=== PATIENT | female | born 1945 | race Caucasian/White ===

== ENCOUNTER 2020-10-06 19:33 | Emergency (ER) | payer MEDICARE, OTHER ==
--- NOTE | 2020-10-06 20:32 | EDM.PDOC ---
ED HPI GENERAL MEDICAL PROBLEM - General Chief Complaint: Neurological Problem Stated Complaint: DIZZY Time Seen by Provider: 10/06/20 20:09 Source of Information: Reports: Patient, Family History Limitations: Reports: No Limitations - History of Present Illness INITIAL COMMENTS - FREE TEXT/NARRATIVE: The patient presents with dizziness. This started a few weeks ago. She saw Dr Schaeffer a few days ago for it. He did labs and they all looked good. He also referred her to an entry level mechanical engineer. Today at 5pm it got much worse. She says when she lays down or looks to the side the dizziness is much worse. She has a slight headache. She also has some crackling in her ears when she opens and closes her mouth. She also has some sharp pain in the left ear at times. She also has dry mouth. She has no nausea or vomiting. She has no fever, chills, cough, chest pain, shortness of breath, abdominal pain, nausea or vomiting. She has no numbness or weakness. She said one time she felt like this her potassium was low but labs from a day ago shows her potassium was 3.9. Onset: Gradual Duration: Week(s): Location: Reports: Head Quality: Reports: Ache Severity: Mild Improves with: Reports: None Worsens with: Reports: None Associated Symptoms: Reports: Headaches. Denies: Chest Pain, Cough, Fever/Chills, Nausea/Vomiting, Shortness of Breath Left Ear Pain Score (Numeric/FACES): 4 - Related Data Allergies Allergy/AdvReac Type Severity Reaction Status Date / Time Penicillins Allergy Difficulty Verified 01/22/20 15:52 Breathing Past Medical History - Infectious Disease History Infectious Disease History: Reports: Measles Social & Family History - Tobacco Use Tobacco Use Status *Q: Never Tobacco User - Caffeine Use Caffeine Use: Reports: Coffee - Recreational Drug Use Recreational Drug Use: No ED ROS GENERAL - Review of Systems Review Of Systems: See Below Constitutional: Reports: No Symptoms HEENT: Reports: Ear Pain (left) Respiratory: Reports: No Symptoms Cardiovascular: Reports: No Symptoms Endocrine: Reports: No Symptoms GI/Abdominal: Reports: No Symptoms : Reports: No Symptoms Musculoskeletal: Reports: No Symptoms Neurological: Reports: Dizziness, Headache. Denies: Numbness, Weakness ED EXAM, NEURO - Physical Exam Exam: See Below Exam Limited By: No Limitations General Appearance: Alert, No Apparent Distress Eye Exam: Left Eye: Nystagmus, Bilateral Eye: EOMI Ears: Normal External Exam, Normal Canal, Normal TMs Nose: Normal Inspection Head Exam: Atraumatic, Normocephalic Neck: Normal Inspection Respiratory/Chest: No Respiratory Distress, Lungs Clear, Normal Breath Sounds Cardiovascular: Regular Rate, Rhythm, No Edema, No Murmur GI/Abdominal: Soft, Non-Tender, No Organomegaly, No Mass Neurological: Alert, No Motor/Sensory Deficits, Oriented x 3 Course - Vital Signs Last Recorded V/S: Last Vital Signs Temp 98.8 F 10/06/20 20:20 Pulse 87 10/06/20 20:20 Resp 20 10/06/20 20:20 BP 154/87 H 10/06/20 20:20 Pulse Ox 99 10/06/20 20:20 - Orders/Labs/Meds Orders: Active Orders 24 hr Category Date Time Status Cardiac Monitoring [RC] . DIRECTED Care 10/06/20 20:25 Active EKG Documentation Completion [RC] STAT Care 10/06/20 20:25 Active Peripheral IV Care [RC] . DIRECTED Care 10/06/20 21:46 Active Head wo Cont [CT] Stat Exams 10/06/20 20:26 Taken Sodium Chloride 0.9% [Normal Saline] 1,000 ml Med 10/06/20 22:15 Active IV ASDIRECTED Sodium Chloride 0.9% [Saline Flush] Med 10/06/20 21:46 Active 10 ml FLUSH ASDIRECTED PRN Peripheral IV Insertion Adult [OM.PC] Routine Oth 10/06/20 21:46 Ordered Medication Orders Sodium Chloride (Normal Saline) 1,000 mls @ 150 mls/hr IV ASDIRECTED MONICA Last Admin: 10/06/20 22:12 Dose: 150 mls/hr Documented by: EL Sodium Chloride (Sodium Chloride 0.9% 10 Ml Syringe) 10 ml FLUSH ASDIRECTED PRN PRN Reason: Keep Vein Open Last Admin: 10/06/20 22:04 Dose: 10 ml Documented by: EL Labs: Laboratory Tests 10/06/20 10/06/20 Range/Units 20:39 20:39 WBC 11.18 H (3.98-10.04) K/mm3 RBC 5.18 (3.98-5.22) M/mm3 Hgb 14.3 (11.2-15.7) gm/dl Hct 43.6 (34.1-44.9) % MCV 84.2 (79.4-94.8) fl MCH 27.6 (25.6-32.2) pg MCHC 32.8 (32.2-35.5) g/dl RDW Std Deviation 47.0 H (36.4-46.3) fL Plt Count 265 (182-369) K/mm3 MPV 8.7 L (9.4-12.3) fl Neut % (Auto) 71.6 H (34.0-71.1) % Lymph % (Auto) 19.1 L (19.3-51.7) % [place] % (Auto) 8.0 (4.7-12.5) % Eos % (Auto) 0.9 (0.7-5.8) Baso % (Auto) 0.2 (0.1-1.2) % Neut # (Auto) 8.02 H (1.56-6.13) K/mm3 Lymph # (Auto) 2.13 (1.18-3.74) K/mm3 [place] # (Auto) 0.89 H (0.24-0.36) K/mm3 Eos # (Auto) 0.10 (0.04-0.36) K/mm3 Baso # (Auto) 0.02 (0.01-0.08) K/mm3 Manual Slide Review Normal smear Sodium 142 (136-145) mEq/L Potassium 3.3 L (3.5-5.1) mEq/L Chloride 104 (98-107) mEq/L Carbon Dioxide 22 (21-32) mEq/L Anion Gap 19.3 H (5-15) BUN 13 (7-18) mg/dL Creatinine 0.7 (0.55-1.02) mg/dL Est Cr Clr Drug Dosing 66.49 mL/min Estimated GFR (MDRD) > 60 (>60) mL/min BUN/Creatinine Ratio 18.6 H (14-18) Glucose 117 H (83-115) mg/dL Calcium 8.8 (8.5-10.1) mg/dL Magnesium 2.3 (1.8-2.4) mg/dl Total Bilirubin 0.4 (0.2-1.0) mg/dL AST 14 L (15-37) U/L ALT 28 (14-59) U/L Alkaline Phosphatase 85 (46-116) U/L Troponin I < 0.017 (0.00-0.056) ng/mL Total Protein 7.3 (6.4-8.2) g/dl Albumin 3.9 (3.4-5.0) g/dl Globulin 3.4 gm/dL Albumin/Globulin Ratio 1.2 (1-2) Meds: Medications Generic Name Dose Route Start Last Admin Trade Name Freq PRN Reason Stop Dose Admin Sodium Chloride 1,000 mls @ 150 mls/hr 10/06/20 22:15 10/06/20 22:12 Normal Saline IV 150 mls/hr ASDIRECTED MONICA Administration Sodium Chloride 10 ml 10/06/20 21:46 10/06/20 22:04 Sodium Chloride 0.9% 10 Ml Syringe FLUSH 10 ml ASDIRECTED PRN Administration Keep Vein Open Discontinued Medications Generic Name Dose Route Start Last Admin Trade Name Freq PRN Reason Stop Dose Admin Potassium Chloride 10 meq/ 100 mls @ 100 mls/hr 10/06/20 21:46 10/06/20 22:02 Premix IV 10/06/20 22:45 100 mls/hr ONETIME ONE Administration Meclizine HCl 25 mg 10/06/20 20:26 10/06/20 20:36 Meclizine 25 Mg Tab.Chew PO 10/06/20 20:27 25 mg ONETIME ONE Administration - Re-Assessments/Exams Free Text/Narrative Re-Assessment/Exam: 10/06/20 20:33 I ordered an EKG, CT of her head, labs and antivert 25mg by mouth. 10/06/20 21:34 Her EKG shows a NSR with no acute changes. Her WBC was elevated at 11.18. Her K was a little low at 3.3. Her anion gap was elevated at 19.3. Her glucose was elevated at 117. Her troponin is negative. Her CT shows no acute intracranial pathology. 10/06/20 22:51 Her K was 4.4 2 days ago and a week ago it was 3.9. I will give her a dose of IV potassium and keep her on the 20meq 2 times per day. Departure - Departure Time of Disposition: 22:55 Disposition: Home, Self-Care 01 Condition: Good Clinical Impression: Hypokalemia, Dizziness - Discharge Information *PRESCRIPTION DRUG MONITORING PROGRAM REVIEWED*: Not Applicable *COPY OF PRESCRIPTION DRUG MONITORING REPORT IN PATIENT GURU: Not Applicable Referrals: Riley Schaeffer MD [Primary Care Provider] - 1 Week Forms: ED Department Discharge Additional Instructions: Keep taking your medications and take the potassium 20meq 2 times per day. Follow up with Dr Schaeffer within a week. Please return if you are worse. Sepsis Event Note (ED) - Evaluation Sepsis Screening Result: No Definite Risk - Focused Exam Vital Signs: Vital Signs Temp Pulse Resp BP Pulse Ox 10/06/20 20:20 98.8 F 87 20 154/87 H 99 - My Orders Last 24 Hours: My Active Orders 10/06/20 20:25 Cardiac Monitoring [RC] . DIRECTED EKG Documentation Completion [RC] STAT 10/06/20 20:26 Head wo Cont [CT] Stat 10/06/20 21:46 Peripheral IV Care [RC] . DIRECTED Sodium Chloride 0.9% [Saline Flush] 10 ml FLUSH ASDIRECTED PRN Peripheral IV Insertion Adult [OM.PC] Routine 10/06/20 22:15 Sodium Chloride 0.9% [Normal Saline] 1,000 ml IV ASDIRECTED - Assessment/Plan Last 24 Hours: My Active Orders 10/06/20 20:25 Cardiac Monitoring [RC] . DIRECTED EKG Documentation Completion [RC] STAT 10/06/20 20:26 Head wo Cont [CT] Stat 10/06/20 21:46 Peripheral IV Care [RC] . DIRECTED Sodium Chloride 0.9% [Saline Flush] 10 ml FLUSH ASDIRECTED PRN Peripheral IV Insertion Adult [OM.PC] Routine 10/06/20 22:15 Sodium Chloride 0.9% [Normal Saline] 1,000 ml IV ASDIRECTED
[2020-10-06] MEDS ORDERED: Potassium Chloride 10 MEQ in Premix Bag 1 BAG IV ONE (21:46)
[2020-10-06] MEDS ORDERED: Sodium Chloride 0.9% 10 ML Syringe FLUSH PRN (21:46)
[2020-10-06] MEDS ORDERED: Sodium Chloride 0.9% 1,000 ML IV SCH (22:15)
--- NOTE | 2020-10-07 08:40 | CT ---
Head CT Technique: Multiple axial sections through the brain were obtained. Intravenous contrast was not utilized. Reconstructed coronal and sagittal images were obtained. Comparison: No previous intracranial imaging is available. Findings: Ventricles along with basal cisterns and sulci over the convexities appear mildly prominent. Slight diminished density is noted within the periventricular white matter compatible with minimal small vessel ischemic demyelination change. Small old lacunar infarct is noted within the posterior left basal ganglia. No other abnormal parenchymal densities are seen. No evidence of intracranial hemorrhage. No midline shift or mass effect is appreciated. Slight vascular calcification is noted within the carotid siphon. Bone window settings were reviewed which show no acute osseous finding. Visualized mastoid and paranasal sinuses show minimal retention cyst or mucosal thickening within the left sphenoid sinus. Other portions of the paranasal sinuses and mastoid sinuses show nothing acute. Impression: 1. Slight senescent change. 2. Minimal sinus finding believed to be incidental. 3. Nothing acute is appreciated on noncontrast head CT study. Diagnostic code #2 Agree with preliminary report issued by [facility], preliminary report finalized on 10/06/20, 10:28 PM CDT, code #1
--- NOTE | 2020-10-08 13:32 | PCM.SN.2 ---
#1 Interpretation EKG Date: 10/06/20 Time: 20:32 Rhythm: NSR Rate (Beats/Min): 79 [place]: Normal P-Wave: Present QRS: Normal ST-T: Normal QT: Normal
== END 2020-10-06 23:18 | disposition home or self-care (01) ==
LOC: JD.ED 19:33
DX: E87.6 Hypokalemia (principal); Z88.0 Allergy status to penicillin
CPT/HCPCS: 36415; 70450; 80053; 83735; 84484; 85025; 93005; 96365; 99284; A9270; J3480; J7030

== ENCOUNTER 2020-10-12 20:55 | Emergency (ER) | payer MEDICARE, OTHER ==
--- NOTE | 2020-10-12 21:58 | EDM.PDOC ---
ED HPI GENERAL MEDICAL PROBLEM - General Chief Complaint: Genitourinary Problem Stated Complaint: UTI Time Seen by Provider: 10/12/20 21:23 Source of Information: Reports: Patient History Limitations: Reports: No Limitations - History of Present Illness INITIAL COMMENTS - FREE TEXT/NARRATIVE: Mrs. Li is a pleasant 75-year-old woman who, medical records indicate, was seen in this ED this past , 10/06/2020, with a complaint of lightheadedness. Work-up included a CBC, CMP, magnesium level, troponin level, a CT of the head without contrast, and an ECG. She was found to be slightly hypokalemic at 3.3, and was given IV KCl before being discharged home. The patient is already on oral KCl. The patient states that by 10/10/2020, she was not feeling any better, therefore saw her PCP, who diagnosed her with a UTI. Her potassium level was 4.2. The patient states that she had been having urinary frequency since , however, the medical record from the ED on 10/06/2020 does not indicate that the patient told the ED Physician that. The patient's PCP prescribed Bactrim, which the patient states she has been taking as prescribed. She states that her lightheadedness resolved Saturday night. The patient states that she became lightheaded again around 18:00 this evening. She states that she also feels flushed in her face, and a tingling sensation under her skin. She continues to complain of urinary frequency, although denies dysuria, per se. No recent fever. The patient states that she had similar symptoms about 3 years ago. Here in the ED tonight, the patient is found to be hemodynamically stable, afebrile, saturating 97% on room air. Prior to , the patient denies having a recent fever, chills, sore throat, ear pain, nasal or sinus congestion, cough, dyspnea, chest pain, palpitations, nausea, vomiting, constipation, diarrhea, abdominal pain, urinary symptoms, recent weight gain or weight loss, recent bloody bowel movements or black bowel movements, recent joint aches, headaches, or rashes. Of note, the patient's apparently of cancer this past May, after being diagnosed around . The patient reports feeling extremely anxious and overwhelmed. The patient's PCP is Dr. Riley Schaeffer. Bilateral Lower Back Pain Score (Numeric/FACES): 2 - Related Data Allergies Allergy/AdvReac Type Severity Reaction Status Date / Time Penicillins Allergy Difficulty Verified 10/12/20 21:01 Breathing Home Meds: Home Meds Aspirin [Aspirin EC] 81 mg PO DAILY 10/12/20 [History] Beta-Carotene [Beta Carotene] 25,000 unit PO DAILY 10/12/20 [History] Cholecalciferol (Vitamin D3) [Vitamin D3] 1,000 unit PO DAILY 10/12/20 [History] Cyanocobalamin (Vitamin B-12) [Vitamin B-12] 1,000 mcg PO DAILY 10/12/20 [History] Losartan [Cozaar] 100 mg PO DAILY 10/12/20 [History] Omeprazole 20 mg PO DAILY 10/12/20 [History] Potassium Chloride [Klor-Con 10] 20 meq PO BID 10/12/20 [History] Pyridoxine HCl [Vitamin B-6] 50 mg PO DAILY 10/12/20 [History] Simvastatin [Zocor] 40 mg PO DAILY 10/12/20 [History] Vit A/Vit C/Vit E/Zinc/Copper [Icaps Areds Formula] 1 each PO DAILY 10/12/20 [History] amLODIPine [Norvasc] 5 mg PO DAILY 10/12/20 [History] nitrofurantoin macrocrystaL [Nitrofurantoin] 100 mg PO BID 10/12/20 [History] Past Medical History HEENT History: Reports: Impaired Vision Other HEENT History: Wears glasses Cardiovascular History: Reports: High Cholesterol, Hypertension [employer] History: Reports: Musculoskeletal History: Reports: Other (See Below) Other Musculoskeletal History: Sciatica - Infectious Disease History Infectious Disease History: Reports: Measles - Past Surgical History Musculoskeletal Surgical History: Reports: Knee Replacement Social & Family History - Tobacco Use Tobacco Use Status *Q: Never Tobacco User - Caffeine Use Caffeine Use: Reports: Coffee - Recreational Drug Use Recreational Drug Use: No ED ROS GENERAL - Review of Systems Review Of Systems: Comprehensive ROS is negative, except as noted in HPI. ED EXAM, GENERAL - Physical Exam Exam: See Below Exam Limited By: No Limitations General Appearance: Alert, WD/WN, Anxious, Other (Somewhat disheveled) Eye Exam: Bilateral Eye: EOMI, Normal Inspection, PERRL Ears: Normal External Exam, Normal Canal, Hearing Grossly Normal, Normal TMs Nose: Normal Inspection, Normal Mucosa, No Blood Throat/Mouth: Normal Inspection, Normal Lips, Normal Teeth, Normal Gums, Normal Oropharynx (oral mucosa moist), Normal Voice, No Airway Compromise Head: Atraumatic, Normocephalic Neck: Normal Inspection, Supple, Non-Tender, Full Range of Motion. No: Lymphadenopathy (L), Lymphadenopathy (R) Respiratory/Chest: No Respiratory Distress, Lungs Clear, Normal Breath Sounds, No Accessory Muscle Use Cardiovascular: Normal Peripheral Pulses, Regular Rate, Rhythm, No Edema, No Gallop, No JVD, No Murmur, No Rub Peripheral Pulses: 3+: Radial (L), Radial (R) GI/Abdominal: Normal Bowel Sounds, Soft, Non-Tender, No Organomegaly, No Distention, No Abnormal Bruit, No Mass Back Exam: Normal Inspection, Full Range of Motion, NT Extremities: Normal Inspection, Normal Range of Motion, No Pedal Edema, Normal Capillary Refill Neurological: Alert, Oriented, CN II-XII Intact, No Motor/Sensory Deficits Psychiatric: Other (Somewhat mentally agitated) Skin Exam: Warm, Dry, Intact, Normal Color, No Rash Course - Vital Signs Last Recorded V/S: Last Vital Signs Temp 36.4 C 10/12/20 21:05 Pulse 98 10/12/20 21:05 Resp 17 10/12/20 21:05 BP 122/93 H 10/12/20 21:05 Pulse Ox 97 10/12/20 21:05 Orthostatic Blood Pressure [ 143/85 Standing] Orthostatic Blood Pressure [ 142/78 Sitting] Orthostatic Blood Pressure [ 150/77 Supine] - Orders/Labs/Meds Labs: Laboratory Tests 10/12/20 10/12/20 10/12/20 Range/Units 21:35 22:06 22:06 WBC 9.27 (3.98-10.04) K/mm3 RBC 5.05 (3.98-5.22) M/mm3 Hgb 14.0 (11.2-15.7) gm/dl Hct 42.6 (34.1-44.9) % MCV 84.4 (79.4-94.8) fl MCH 27.7 (25.6-32.2) pg MCHC 32.9 (32.2-35.5) g/dl RDW Std Deviation 46.6 H (36.4-46.3) fL Plt Count 279 (182-369) K/mm3 MPV 8.7 L (9.4-12.3) fl Neutrophils % (Manual) 61 H (40-60) % Band Neutrophils % 0 (0-10) % Lymphocytes % (Manual) 30 (20-40) % Atypical Lymphs % 0 % Monocytes % (Manual) 5 (2-10) % Eosinophils % (Manual) 4 (0.7-5.8) % Basophils % (Manual) 0 L (0.1-1.2) Platelet Estimate Adequate RBC Morph Comment Normal Sodium 143 (136-145) mEq/L Potassium 3.9 (3.5-5.1) mEq/L Chloride 106 (98-107) mEq/L Carbon Dioxide 26 (21-32) mEq/L Anion Gap 14.9 (5-15) BUN 13 (7-18) mg/dL Creatinine 0.7 (0.55-1.02) mg/dL Est Cr Clr Drug Dosing 66.49 mL/min Estimated GFR (MDRD) > 60 (>60) mL/min BUN/Creatinine Ratio 18.6 H (14-18) Glucose 126 H (83-115) mg/dL Calcium 9.4 (8.5-10.1) mg/dL Magnesium 2.3 (1.8-2.4) mg/dl Total Bilirubin 0.3 (0.2-1.0) mg/dL AST 16 (15-37) U/L ALT 28 (14-59) U/L Alkaline Phosphatase 77 (46-116) U/L Total Protein 7.1 (6.4-8.2) g/dl Albumin 3.8 (3.4-5.0) g/dl Globulin 3.3 gm/dL Albumin/Globulin Ratio 1.2 (1-2) Urine Color Yellow (Yellow) Urine Appearance Clear (Clear) Urine pH 6.5 (5.0-8.0) Ur Specific [place] 1.015 (1.005-1.030) Urine Protein Negative (Negative) Urine Glucose (UA) Negative (Negative) Urine Ketones Negative (Negative) Urine Occult Blood Negative (Negative) Urine Nitrite Negative (Negative) Urine Bilirubin Negative (Negative) Urine Urobilinogen 0.2 (0.2-1.0) Ur Leukocyte Esterase Negative (Negative) Urine RBC 0-5 (0-5) /hpf Urine WBC 0-5 (0-5) /hpf Ur Squamous Epith Cells 0-5 (0-5) /hpf Urine Bacteria Few (FEW) /hpf Urine Mucus Not seen (FEW) /hpf - Re-Assessments/Exams Free Text/Narrative Re-Assessment/Exam: 10/12/20 21:57 As above, the patient was seen in this ED this past for lightheadedness. She was found to have slight hypokalemia of 3.3, and was given IV potassium replacement. She still felt lightheaded on Saturday, therefore saw her PCP, who diagnosed her with a UTI. The patient tells me that she had been having urinary frequency since , however, I do not believe that she told the ED Physician of that symptom when she was seen. She was started on Bactrim, which she states she has been taking as prescribed. Her lightheadedness resolved Saturday night, but returned again this evening, along with feeling flushed in her face and a tingling sensation under her skin. No recent fever. Her physical exam, including a thorough neurologic examination, is grossly unremarkable, however, the patient does appear to be somewhat mentally agitated and restless. She is disheveled. I have ordered a work-up that includes orthostatics, some blood tests, and a urinalysis. 10/12/20 22:05 The patient is not orthostatic. 10/12/20 23:56 The patient's CBC is unremarkable. Her CMP is remarkable for slight hyperglycemia of 126, with the remainder of her CMP being unremarkable. Her magnesium level is within normal limits at 2.3. Her urinalysis is unremarkable. 10/13/20 00:00 Test results discussed with the patient. As above, today's work-up is unremarkable, and does not explain the cause of her symptoms. The patient believes that her symptoms are due to anxiety/panic attack, which I cannot disagree with. In that regard, I would like her to follow-up with Dr. Schaeffer to discuss treatment options for anxiety. Departure - Departure Time of Disposition: 00:01 Disposition: Home, Self-Care 01 Condition: Good Clinical Impression: Lightheadedness - Discharge Information *PRESCRIPTION DRUG MONITORING PROGRAM REVIEWED*: Not Applicable *COPY OF PRESCRIPTION DRUG MONITORING REPORT IN PATIENT GURU: Not Applicable Instructions: Dizziness Referrals: Riley Schaeffer MD [Primary Care Provider] - Forms: ED Department Discharge Additional Instructions: You were seen in the emergency room for recurrent lightheadedness. Work-up in the ER included positional blood pressure checks, several blood tests, and a urinalysis. Your entire work-up was unremarkable. Your blood pressure maintained itself between lying down and standing, your blood work was unremarkable, and your urinalysis was normal. The cause of your lightheadedness has not been determined, but could very well be due to anxiety. We recommend that you continue to take the Bactrim that was prescribed to you on Saturday. We recommend that you follow-up with your PCP, Dr. Riley Schaeffer, at the next available appointment, to discuss treatment options for anxiety. If any other problems, please do not hesitate to return to the ER. Sepsis Event Note (ED) - Evaluation Sepsis Screening Result: No Definite Risk - Focused Exam Vital Signs: Vital Signs Temp Pulse Resp BP Pulse Ox 10/12/20 21:05 36.4 C 98 17 122/93 H 97
--- NOTE | 2020-10-13 20:33 | PCM.SN.2 ---
#1 Interpretation EKG Date: 10/06/20 Time: 20:32 Rhythm: NSR Rate (Beats/Min): 79 [place]: Normal P-Wave: Present QRS: Normal ST-T: Normal QT: Normal
== END 2020-10-13 00:11 | disposition home or self-care (01) ==
LOC: JD.ED 20:55
DX: R42 Dizziness and giddiness (principal); E78.00 Pure hypercholesterolemia, unspecified; I10 Essential (primary) hypertension; Z88.0 Allergy status to penicillin; Z79.899 Other long term (current) drug therapy; Z79.82 Long term (current) use of aspirin
CPT/HCPCS: 36415; 80053; 81001; 83735; 85007; 85027; 99282; 99284

== ENCOUNTER 2021-04-12 18:11 | Emergency (ER) | payer MEDICARE, OTHER ==
[2021-04-12] MEDS ORDERED: Sodium Chloride 0.9% 10 ML Syringe FLUSH PRN (20:00)
[2021-04-12] MEDS ORDERED: Sodium Chloride 0.9% 1,000 ML IV STA (20:05)
--- NOTE | 2021-04-12 20:42 | EDM.PDOC ---
ED HPI GENERAL MEDICAL PROBLEM - General Chief Complaint: Gastrointestinal Problem Stated Complaint: DIARRHEA Time Seen by Provider: 04/12/21 18:35 Source of Information: Reports: Patient, RN Notes Reviewed History Limitations: Reports: No Limitations - History of Present Illness INITIAL COMMENTS - FREE TEXT/NARRATIVE: patient is a 75-year-old female presenting to the emergency department for evaluation of mild cough, headaches, and diarrhea. Reports symptoms began last evening. She did have a short period of nausea this morning, however this resolved. She denies any significant shortness of breath. Patient did receive her flu vaccination yesterday. She was seen in the clinic earlier today and had a rapid test for Covid completed and this was negative. They also gave her IV fluids and ordered C. difficile testing for her diarrhea as she has had C. difficile in the past. Patient reports since being in the clinic, she had 4 more episodes of diarrhea. Denies significant abdominal pain, but does have some mild right upper quadrant tenderness. She has had no vomiting or fevers. - Related Data Allergies Allergy/AdvReac Type Severity Reaction Status Date / Time Penicillins Allergy Difficulty Verified 04/12/21 18:35 Breathing Home Meds: Home Meds Aspirin [Aspirin EC] 81 mg PO DAILY 10/12/20 [History] Beta-Carotene [Beta Carotene] 25,000 unit PO DAILY 10/12/20 [History] Cholecalciferol (Vitamin D3) [Vitamin D3] 1,000 unit PO DAILY 10/12/20 [History] Cyanocobalamin (Vitamin B-12) [Vitamin B-12] 1,000 mcg PO DAILY 10/12/20 [History] Losartan [Cozaar] 100 mg PO DAILY 10/12/20 [History] Omeprazole 20 mg PO DAILY 10/12/20 [History] Potassium Chloride [Klor-Con 10] 20 meq PO BID 10/12/20 [History] Pyridoxine HCl [Vitamin B-6] 50 mg PO DAILY 10/12/20 [History] Simvastatin [Zocor] 40 mg PO DAILY 10/12/20 [History] Vit A/Vit C/Vit E/Zinc/Copper [Icaps Areds Formula] 1 each PO DAILY 10/12/20 [History] amLODIPine [Norvasc] 5 mg PO DAILY 10/12/20 [History] nitrofurantoin macrocrystaL [Nitrofurantoin] 100 mg PO BID 10/12/20 [History] Past Medical History HEENT History: Reports: Impaired Vision Other HEENT History: Wears glasses Cardiovascular History: Reports: High Cholesterol, Hypertension [employer] History: Reports: Musculoskeletal History: Reports: Other (See Below) Other Musculoskeletal History: Sciatica - Infectious Disease History Infectious Disease History: Reports: Measles - Past Surgical History Musculoskeletal Surgical History: Reports: Knee Replacement Social & Family History - Caffeine Use Caffeine Use: Reports: Coffee ED ROS GENERAL - Review of Systems Review Of Systems: Comprehensive ROS is negative, except as noted in HPI. ED EXAM, GI/ABD - Physical Exam Exam: See Below Exam Limited By: No Limitations General Appearance: Alert, WD/WN, No Apparent Distress Respiratory/Chest: No Respiratory Distress, Lungs Clear, Normal Breath Sounds, No Accessory Muscle Use, Chest Non-Tender Cardiovascular: Normal Peripheral Pulses, Regular Rate, Rhythm, No Edema, No Gallop, No JVD, No Murmur, No Rub GI/Abdominal Exam: Normal Bowel Sounds, Soft, Non-Tender, No Organomegaly, No Distention, No Abnormal Bruit, No Mass, Pelvis Stable Neurological: Alert, Oriented, CN II-XII Intact, Normal Cognition, Normal Gait, Normal Reflexes, No Motor/Sensory Deficits Psychiatric: Normal Affect, Normal Mood Skin Exam: Warm, Dry, Intact, Normal Color, No Rash Course - Vital Signs Last Recorded V/S: Last Vital Signs Temp 97.0 F 04/12/21 18:28 Pulse 90 04/12/21 18:28 Resp 20 04/12/21 18:28 BP 158/65 H 04/12/21 18:28 Pulse Ox 98 04/12/21 18:28 - Orders/Labs/Meds Orders: Active Orders 24 hr Category Date Time Status Peripheral IV Care [RC] . DIRECTED Care 04/12/21 20:00 Active Sodium Chloride 0.9% [Normal Saline] 1,000 ml Med 04/12/21 20:05 Active IV NOW Sodium Chloride 0.9% [Saline Flush] Med 04/12/21 20:00 Active 10 ml FLUSH ASDIRECTED PRN Peripheral IV Insertion Adult [OM.PC] Stat Oth 04/12/21 19:59 Ordered Medication Orders Sodium Chloride (Normal Saline) 1,000 mls @ 150 mls/hr IV NOW STA Stop: 04/13/21 02:44 Last Admin: 04/12/21 20:24 Dose: 150 mls/hr Documented by: [email or web address] Sodium Chloride (Sodium Chloride 0.9% 10 Ml Syringe) 10 ml FLUSH ASDIRECTED PRN PRN Reason: Keep Vein Open Last Admin: 04/12/21 20:24 Dose: 10 ml Documented by: [id number] Labs: Laboratory Tests 04/12/21 04/12/21 04/12/21 Range/Units 18:41 20:04 20:23 WBC 7.63 (3.98-10.04) K/mm3 RBC 4.79 (3.98-5.22) M/mm3 Hgb 13.6 (11.2-15.7) gm/dl Hct 41.3 (34.1-44.9) % MCV 86.2 (79.4-94.8) fl MCH 28.4 (25.6-32.2) pg MCHC 32.9 (32.2-35.5) g/dl RDW Std Deviation 47.5 H (36.4-46.3) fL Plt Count 216 (182-369) K/mm3 MPV 8.9 L (9.4-12.3) fl Neut % (Auto) 80.8 H (34.0-71.1) % Lymph % (Auto) 10.1 L (19.3-51.7) % [place] % (Auto) 8.8 (4.7-12.5) % Eos % (Auto) 0.1 L (0.7-5.8) Baso % (Auto) 0.1 (0.1-1.2) % Neut # (Auto) 6.16 H (1.56-6.13) K/mm3 Lymph # (Auto) 0.77 L (1.18-3.74) K/mm3 [place] # (Auto) 0.67 H (0.24-0.36) K/mm3 Eos # (Auto) 0.01 L (0.04-0.36) K/mm3 Baso # (Auto) 0.01 (0.01-0.08) K/mm3 Sodium (136-145) mEq/L Potassium (3.5-5.1) mEq/L Chloride (98-107) mEq/L Carbon Dioxide (21-32) mEq/L Anion Gap (5-15) BUN (7-18) mg/dL Creatinine (0.55-1.02) mg/dL Est Cr Clr Drug Dosing mL/min Estimated GFR (MDRD) (>60) mL/min BUN/Creatinine Ratio (14-18) Glucose (70-99) mg/dL Calcium (8.5-10.1) mg/dL Magnesium (1.8-2.4) mg/dL Total Bilirubin (0.2-1.0) mg/dL AST (15-37) U/L ALT (14-59) U/L Alkaline Phosphatase (46-116) U/L C-Reactive Protein (<1.0) mg/dL Total Protein (6.4-8.2) g/dl Albumin (3.4-5.0) g/dl Globulin gm/dL Albumin/Globulin Ratio (1-2) Urine Color Yellow (Yellow) Urine Appearance Clear (Clear) Urine pH 6.0 (5.0-8.0) Ur Specific [place] 1.015 (1.005-1.030) Urine Protein Negative (Negative) Urine Glucose (UA) Negative (Negative) Urine Ketones Trace H (Negative) Urine Occult Blood Negative (Negative) Urine Nitrite Negative (Negative) Urine Bilirubin Negative (Negative) Urine Urobilinogen 0.2 (0.2-1.0) Ur Leukocyte Esterase Negative (Negative) Urine RBC 0-5 (0-5) /hpf Urine WBC 0-5 (0-5) /hpf Ur Squamous Epith Cells 0-5 (0-5) /hpf Urine Bacteria Few (FEW) /hpf Urine Mucus Not seen (FEW) /hpf SARS-CoV-2 RNA (SHERLY) Negative (NEGATIVE) 04/12/21 Range/Units 20:23 WBC (3.98-10.04) K/mm3 RBC (3.98-5.22) M/mm3 Hgb (11.2-15.7) gm/dl Hct (34.1-44.9) % MCV (79.4-94.8) fl MCH (25.6-32.2) pg MCHC (32.2-35.5) g/dl RDW Std Deviation (36.4-46.3) fL Plt Count (182-369) K/mm3 MPV (9.4-12.3) fl Neut % (Auto) (34.0-71.1) % Lymph % (Auto) (19.3-51.7) % [place] % (Auto) (4.7-12.5) % Eos % (Auto) (0.7-5.8) Baso % (Auto) (0.1-1.2) % Neut # (Auto) (1.56-6.13) K/mm3 Lymph # (Auto) (1.18-3.74) K/mm3 [place] # (Auto) (0.24-0.36) K/mm3 Eos # (Auto) (0.04-0.36) K/mm3 Baso # (Auto) (0.01-0.08) K/mm3 Sodium 142 (136-145) mEq/L Potassium 3.0 L (3.5-5.1) mEq/L Chloride 109 H (98-107) mEq/L Carbon Dioxide 21 (21-32) mEq/L Anion Gap 15.0 (5-15) BUN 10 (7-18) mg/dL Creatinine 0.7 (0.55-1.02) mg/dL Est Cr Clr Drug Dosing 66.49 mL/min Estimated GFR (MDRD) > 60 (>60) mL/min BUN/Creatinine Ratio 14.3 (14-18) Glucose 115 H (70-99) mg/dL Calcium 8.7 (8.5-10.1) mg/dL Magnesium 2.0 (1.8-2.4) mg/dL Total Bilirubin 0.6 (0.2-1.0) mg/dL AST 27 (15-37) U/L ALT 36 (14-59) U/L Alkaline Phosphatase 88 (46-116) U/L C-Reactive Protein 0.4 (<1.0) mg/dL Total Protein 6.8 (6.4-8.2) g/dl Albumin 3.5 (3.4-5.0) g/dl Globulin 3.3 gm/dL Albumin/Globulin Ratio 1.1 (1-2) Urine Color (Yellow) Urine Appearance (Clear) Urine pH (5.0-8.0) Ur Specific [place] (1.005-1.030) Urine Protein (Negative) Urine Glucose (UA) (Negative) Urine Ketones (Negative) Urine Occult Blood (Negative) Urine Nitrite (Negative) Urine Bilirubin (Negative) Urine Urobilinogen (0.2-1.0) Ur Leukocyte Esterase (Negative) Urine RBC (0-5) /hpf Urine WBC (0-5) /hpf Ur Squamous Epith Cells (0-5) /hpf Urine Bacteria (FEW) /hpf Urine Mucus (FEW) /hpf SARS-CoV-2 RNA (SHERLY) (NEGATIVE) Meds: Medications Generic Name Dose Route Start Last Admin Trade Name Freq PRN Reason Stop Dose Admin Sodium Chloride 1,000 mls @ 150 mls/hr 04/12/21 20:05 04/12/21 20:24 Normal Saline IV 04/13/21 02:44 150 mls/hr NOW STA Administration Sodium Chloride 10 ml 04/12/21 20:00 04/12/21 20:24 Sodium Chloride 0.9% 10 Ml Syringe FLUSH 10 ml ASDIRECTED PRN Administration Keep Vein Open Discontinued Medications Generic Name Dose Route Start Last Admin Trade Name Freq PRN Reason Stop Dose Admin Potassium Chloride 40 meq 04/12/21 21:10 Potassium Chloride 20 Meq Tab.Er PO 04/12/21 21:11 ONETIME ONE - Re-Assessments/Exams Free Text/Narrative Re-Assessment/Exam: Patient is a 75-year-old female presenting to the emergency department with concerns of possible Covid symptoms. Reports she had a rapid test complete in the clinic that there was a PCR send out, showing she will not get these results until tomorrow. Her main complaint is diarrhea, however she also complains of mild cough and headaches. Exam is unremarkable. She has no abdominal tenderness. C. difficile has already been collected in the clinic and results are pending. I have ordered blood work, urinalysis, Covid test. Needed IV fluids of normal saline at 150 mill per hour pending lab results. 04/12/21 21:18 Hematology is significant for potassium low at 3.0. Otherwise unremarkable. Urinalysis is negative for infection. Covid is negative. Results discussed with patient. She currently takes 20 mEq potassium in the morning and the evening. I will have her increase to 40 mEq in the morning and 20 mEq in the evening for 3 days with her first dose being this evening. She would like to take it at home as she has not eaten anything yet. Recommend follow-up with primary care provider on Saturday to have blood work rechecked. Discussed return precautions. Discharge instructions as documented. Departure - Departure Time of Disposition: 21:18 Disposition: Home, Self-Care 01 Condition: Good Clinical Impression: Diarrhea - Discharge Information *PRESCRIPTION DRUG MONITORING PROGRAM REVIEWED*: No *COPY OF PRESCRIPTION DRUG MONITORING REPORT IN PATIENT GURU: No Instructions: Diarrhea, Adult Referrals: Riley cShaeffer MD [Primary Care Provider] - Forms: ED Department Discharge Additional Instructions: Take 40 mEq of potassium tonight when you get home. Take 40 meq of potassium in the morning and 20 mEq in the evening for the next 3 days. Then return to your normal potassium dosing. Follow-up in the clinic on Saturday to have blood work rechecked. Return to ER for any new or worsening symptoms. Sepsis Event Note (ED) - Evaluation Sepsis Screening Result: No Definite Risk - Focused Exam Vital Signs: Vital Signs Temp Pulse Resp BP Pulse Ox 04/12/21 18:28 97.0 F 90 20 158/65 H 98 - My Orders Last 24 Hours: My Active Orders 04/12/21 19:59 Peripheral IV Insertion Adult [OM.PC] Stat 04/12/21 20:00 Peripheral IV Care [RC] . DIRECTED Sodium Chloride 0.9% [Saline Flush] 10 ml FLUSH ASDIRECTED PRN 04/12/21 20:05 Sodium Chloride 0.9% [Normal Saline] 1,000 ml IV NOW - Assessment/Plan Last 24 Hours: My Active Orders 04/12/21 19:59 Peripheral IV Insertion Adult [OM.PC] Stat 04/12/21 20:00 Peripheral IV Care [RC] . DIRECTED Sodium Chloride 0.9% [Saline Flush] 10 ml FLUSH ASDIRECTED PRN 04/12/21 20:05 Sodium Chloride 0.9% [Normal Saline] 1,000 ml IV NOW
[2021-04-12] MEDS ORDERED: Potassium Chloride 20 MEQ Tab.ER PO ONE (21:10)
== END 2021-04-12 21:34 | disposition home or self-care (01) ==
LOC: JD.ED 18:11
DX: R19.7 Diarrhea, unspecified (principal); E78.00 Pure hypercholesterolemia, unspecified; I10 Essential (primary) hypertension; Z88.0 Allergy status to penicillin; Z79.82 Long term (current) use of aspirin; Z79.899 Other long term (current) drug therapy; Z20.822 Contact with and (suspected) exposure to COVID-19
CPT/HCPCS: 36415; 80053; 81001; 83735; 85025; 86140; 99283; J7030; U0002

== ENCOUNTER 2021-10-29 23:55 | Emergency (ER) | payer MEDICARE, OTHER | END 2021-10-30 01:41 | disposition home or self-care (01) | LOC: JD.ED 23:55 | DX: R11.2 Nausea with vomiting, unspecified (principal); E78.00 Pure hypercholesterolemia, unspecified; I10 Essential (primary) hypertension; K21.9 Gastro-esophageal reflux disease without esophagitis; Z88.0 Allergy status to penicillin; Z79.82 Long term (current) use of aspirin; Z79.899 Other long term (current) drug therapy | CPT/HCPCS: 99284 ==

== ENCOUNTER 2022-02-12 10:38 | Day surgery (SDC) | payer MEDICARE, OTHER ==
[2022-02-12] MEDS: Lidocaine 1%/Sod Bicarbonate in NS 8.4% 1 ML Syringe IDERM PRN ×2 (10:20→12:07)
[~2022-02-12 10:38] MED LIST: Lactated Ringers 1,000 ML IV SCH; Sodium Chloride 0.9% 10 ML Syringe FLUSH PRN; Sodium Chloride 0.9% 10 ML Syringe FLUSH SCH
[2022-02-12] MEDS ORDERED: Midazolam 1 MG/ML 2 ML SDV ONE (10:52)
[2022-02-12] MEDS ORDERED: Propofol 200 MG/20 ML SDV ONE ×2 (10:53→10:54)
[2022-02-12] MEDS ORDERED: fentaNYL 100 MCG/2 ML SDV ONE (11:26)
[2022-02-12] MEDS ORDERED: Lidocaine 1% 4 ML ONE (11:41)
[2022-02-12] MEDS ORDERED: Bupivacaine 0.25% 10 ML SDV ONE (11:41)
[2022-02-12] MEDS ORDERED: Triamcinolone Acetonide 40 MG/ML 1 ML SDV ONE (11:41)
[2022-02-12] MEDS ORDERED: ceFAZolin 2 GM Vial ONE (11:54)
== END 2022-02-12 13:20 | disposition home or self-care (01) ==
LOC: JD.SDS 10:38
PROVIDERS: ATTEND Orthopaedic Surgery
DX: M65.331 Trigger finger, right middle finger (principal); M65.332 Trigger finger, left middle finger; F32.A Depression, unspecified; F41.9 Anxiety disorder, unspecified; E78.00 Pure hypercholesterolemia, unspecified; K21.9 Gastro-esophageal reflux disease without esophagitis; M19.90 Unspecified osteoarthritis, unspecified site; E87.6 Hypokalemia; Z79.82 Long term (current) use of aspirin; Z79.811 Long term (current) use of aromatase inhibitors; Z88.0 Allergy status to penicillin; Z88.8 Allergy status to other drugs, medicaments and biological substances; Z88.1 Allergy status to other antibiotic agents; Z68.27 Body mass index [BMI] 27.0-27.9, adult; Z96.659 Presence of unspecified artificial knee joint
CPT/HCPCS: 20552; 26055; J0690; J2250; J2704; J3010; J3301; J3490; J7120; 01810; 99100

== ENCOUNTER 2023-04-11 15:02 | Emergency (ER) | payer MEDICARE, OTHER ==
[2023-04-11] MEDS ORDERED: Aspirin 81 MG Tab.Chew PO ONE (15:20)
[2023-04-11] MEDS ORDERED: Sodium Chloride 0.9% 10 ML Syringe FLUSH PRN (15:20)
[2023-04-11 15:46] LABS: BASOPHILS PERCENT AUTO 0.3 % (0.0-1.0); EOSINOPHILS ABSOLUTE AUTO 0.1 K/mm3 (0.0-0.4); EOSINOPHILS PERCENT AUTO 1.3 % (0.0-6.0); HEMATOCRIT 42.3 % (37.0-47.0); HEMOGLOBIN 14.1 gm/dl (12.0-16.0); IMMATURE GRAN ABSOLUTE AUTO 0.02 K/mm3 (0.00-0.05); IMMATURE GRAN PERCENT AUTO 0.3 % (0.0-0.4); LYMPHOCYTES ABSOLUTE AUTO 2.6 K/mm3 (1.0-4.8); LYMPHOCYTES PERCENT AUTO 32.8 % (24.0-44.0); MEAN CORPUSCULAR HEMOGLOBIN 29.2 pg (28.0-32.0); MEAN CORPUSCULAR HGB CONC 33.3 g/dl (32.0-36.0); MEAN CORPUSCULAR VOLUME 87.6 fl (83.0-99.0); MEAN PLATELET VOLUME 8.5 fl (9.4-12.3); MONOCYTES ABSOLUTE AUTO 0.7 K/mm3 (0.0-0.8); MONOCYTES PERCENT AUTO 8.4 % (0.0-8.0); NEUTROPHILS ABSOLUTE AUTO 4.6 K/mm3 (1.8-7.7); NEUTROPHILS PERCENT AUTO 56.9 % (41.0-71.0); PLATELET COUNT,PLT 210 K/mm3 (150-400); RED BLOOD CELL COUNT 4.83 M/mm3 (4.10-5.30); WHITE BLOOD CELL COUNT,WBC 7.99 K/mm3 (3.9-11.3)
[2023-04-11 16:19] LABS: A/G RATIO 1.2 (1-2); ALANINE AMINOTRANSFERASE,ALT 27 U/L (14-59); ALBUMIN 3.6 g/dl (3.4-5.0); ALKALINE PHOSPHATASE 62 U/L (46-116); ANION GAP 12.7 (5-15); ASPARTATE AMNIOTRANSFERASE,AST 16 U/L (15-37); BILIRUBIN TOTAL 0.5 mg/dL (0.2-1.0); BLOOD UREA NITROGEN,BUN 18 mg/dL (7-18); BUN/CREATININE RATIO 22.5 (14-18); CALCIUM 9.1 mg/dL (8.5-10.1); CARBON DIOXIDE,CO2 25 mEq/L (21-32); CHLORIDE,CL 105 mEq/L (98-107); CREATININE 0.8 mg/dL (0.55-1.02); EST CRCL DRUG DOSING (CG) 54.25 mL/min; ESTIMATED GFR 75 mL/min (>60); GLUCOSE RANDOM 137 mg/dL (70-99); POTASSIUM,K 3.7 mEq/L (3.5-5.1); PROTEIN TOTAL,TP 6.7 g/dl (6.4-8.2); SODIUM,NA 139 mEq/L (136-145)
[2023-04-11 16:20] LABS: TROPONIN I HIGH SENSITIVITY < 4 pg/mL (<=51)
== END 2023-04-11 16:55 | disposition home or self-care (01) ==
LOC: JD.ED 15:02
DX: R07.89 Other chest pain (principal); I10 Essential (primary) hypertension; E78.00 Pure hypercholesterolemia, unspecified; K21.9 Gastro-esophageal reflux disease without esophagitis; M19.90 Unspecified osteoarthritis, unspecified site; Z88.8 Allergy status to other drugs, medicaments and biological substances; Z88.1 Allergy status to other antibiotic agents; Z88.0 Allergy status to penicillin; Z79.82 Long term (current) use of aspirin; Z79.899 Other long term (current) drug therapy
CPT/HCPCS: 36415; 71046; 80053; 84484; 85025; 93005; 99285; A9270